=== PATIENT | male | born 1950 | race Caucasian/White ===

== ENCOUNTER 2016-11-07 21:49 | Inpatient (IN) | payer OTHER ==
[~2016-11-07] VITALS: Ht 185.4 cm; Wt 81.7 kg
[~2016-11-07 21:49] MED LIST: ALBUTEROL S3 ML/VIAL NEB; ALBUTEROL2.5 MG/3 M NEB; ASPIR 8181 MG PO; AVODART0.5 MG PO; BUSPIRONE HCL5 MG PO; DALIRESP500 MCG PO; DULERA 200 MCG8.8 GM IH; FLOMAX0.4 MG PO; LEVAQUIN750 MG PO; MUCINEX600 MG PO; PLAVIX75 MG PO; PREDNISONE10 MG PO; PROAIR HFA8.5 GM IH; PROTONIX40 MG PO; SPIRIVA18 MCG IH; SYNTHROID125 MCG PO; VISTARIL25 MG PO; ZITHROMAX500 MG PO
--- NOTE | 2016-11-09 14:59 | NUR ---
1448: REPORT TO JORDIN CHURCH; PT TRANSFERRED TO ROOM 311 BY BED WITH O2/TELE; PT VERB. UNDERSTANDING.
--- NOTE | 2016-11-09 15:02 | NUR ---
1450- REPORT RECEIVED FROM JORDIN LAM TO TRANSFER PT TO [facility].PT ADMITTED TO ROOM 311 VIA HOSPITAL BED FROM ICU. PT IS AWAKE, ALERT AND ORIENTED X3. NO DISTRESS NOTED.
--- NOTE | 2016-11-09 18:11 | NUR ---
1756 ICU CALLED TO REPORT PATIENT HR 130'S, PATIENT REPORTED THAT HE WAS SHORT OF BREATH AND NAUSEATED. B/P 168/88, HR 138, TEMP. 98.2, RESPIRATIONS 26, O2 93% ON 3LNC. CALLED MD LANE AND REPORTED THE ABOVE. NEW ORDERS GIVEN. 1810 RADIOLOGY HERE TO GET PATIENT FOR STAT CT WITH PE PROTOCOL. PATIENT REFUSES TO GO AT THIS TIME. PATIENT REPORTED HE WOULD GO LATER AND LET US KNOW WHEN HE WAS READY.
--- NOTE | 2016-11-09 18:54 | NUR ---
1830 PATIENT REFUSED PO ATIVAN AND PO METOPROLOL
--- NOTE | 2016-11-11 10:38 | NUR ---
0800 - PATIENT C/O ANXIETY. ATIVAN 0.5 MG PO ADMINISTERED.
--- NOTE | 2016-11-11 17:58 | NUR ---
1520 - PATIENT C/O ANXIETY. ATIVAN 0.5 MG PO ADMINISTERED.
--- NOTE | 2016-11-12 12:32 | NUR ---
929 PATIENT REFUSED TO TAKE AM MEDS, PATIENT REFUSED TO GO DOWN TO RADIOLOGY FOR ABDOMINAL XRAY THIS AM, NOTIFIED DR LANE AT THIS TIME.
--- NOTE | 2016-11-13 16:38 | NUR ---
1435 - PT LEFT FLOOR VIA BED ACCOMPANIED BY OR STAFF. NO S/S OF DISTRESS.
--- NOTE | 2016-11-13 19:22 | NUR ---
1745 - PT ARRIVED TO FLOOR VIA BED ACCOMPANIED BY OR STAFF. NO S/S OF DISTRESS.
--- NOTE | 2016-11-15 03:52 | NUR ---
PATIENT'S FAMILY TURNED THE O2 LEVEL TO 4 L. IT WAS EXPLAINED TO THEM THAT OXYGEN IS CONSIDERED A MEDICATION AND THEY ARE NOT TO ADJUST IT, ONLY MEDICAL PERSONNEL CAN DO SO.
--- NOTE | 2016-11-15 13:22 | NUR ---
1315 dr. pan aware pt. refuses to walk
--- NOTE | 2016-11-16 12:43 | NUR ---
[address] PATIENT REFUSED ENEMAS THIS AM, MUCINEX, AND FLONASE
== END 2016-11-17 19:25 | disposition short-term general hospital (02) | DRG 189 ==
LOC: ER 21:49 → ICU 11-08 01:21 → MED 11-08 01:21 → ICU 11-09 12:00 → MED 11-09 14:50
PROVIDERS: ADMIT Internal Medicine
PROC: 0DJD8ZZ Inspection of Lower Intestinal Tract, Via Natural or Artificial Opening Endoscopic (ICD-10-PCS; principal; 2016-11-13)
DX: J96.21 Acute and chronic respiratory failure with hypoxia (principal); J44.1 Chronic obstructive pulmonary disease with (acute) exacerbation; J44.0 Chronic obstructive pulmonary disease with (acute) lower respiratory infection; K59.39 Other megacolon; K56.60 Unspecified intestinal obstruction; J98.11 Atelectasis; J20.9 Acute bronchitis, unspecified; I10 Essential (primary) hypertension; E03.9 Hypothyroidism, unspecified; N40.0 Benign prostatic hyperplasia without lower urinary tract symptoms; I25.10 Atherosclerotic heart disease of native coronary artery without angina pectoris; Z66 Do not resuscitate; K63.89 Other specified diseases of intestine; E78.5 Hyperlipidemia, unspecified; Z99.81 Dependence on supplemental oxygen; Z87.891 Personal history of nicotine dependence; Z95.5 Presence of coronary angioplasty implant and graft; Z88.1 Allergy status to other antibiotic agents; Z88.2 Allergy status to sulfonamides; Z79.02 Long term (current) use of antithrombotics/antiplatelets; Z79.82 Long term (current) use of aspirin; Z82.49 Family history of ischemic heart disease and other diseases of the circulatory system; Z82.5 Family history of asthma and other chronic lower respiratory diseases; M25.50 Pain in unspecified joint; R11.2 Nausea with vomiting, unspecified; K63.5 Polyp of colon; K57.30 Diverticulosis of large intestine without perforation or abscess without bleeding
CPT/HCPCS: 36415; 94640; 94664; 97161-GP; 97166; C1751; J1650; J1940; J2060; J2704; J2765; Q9963; Q9967

== ENCOUNTER 2016-11-07 21:49 | Emergency (ER) | payer OTHER | END 2016-11-08 01:20 | disposition critical access hospital (66) | LOC: ER 21:49 | DX: J44.1 Chronic obstructive pulmonary disease with (acute) exacerbation (principal); J18.9 Pneumonia, unspecified organism; R09.02 Hypoxemia; M15.9 Polyosteoarthritis, unspecified; I10 Essential (primary) hypertension; E07.9 Disorder of thyroid, unspecified; I25.10 Atherosclerotic heart disease of native coronary artery without angina pectoris; Z98.61 Coronary angioplasty status; Z79.82 Long term (current) use of aspirin; Z79.899 Other long term (current) drug therapy; Z88.1 Allergy status to other antibiotic agents; Z88.2 Allergy status to sulfonamides | CPT/HCPCS: 36415; 96365; 96375 ==